=== PATIENT | male | born 1935 | race Caucasian/White ===

== ENCOUNTER → 2016-04-26 | Outpatient (REF) | payer MEDICARE, MEDICAID | LOC: LAB 17:58 | PROVIDERS: ATTEND Family Medicine | DX: Z53.8 Procedure and treatment not carried out for other reasons (principal) ==

== ENCOUNTER → 2016-04-28 | Outpatient (CLI) | payer MEDICARE, MEDICAID | LOC: LAB 14:53 | PROVIDERS: ATTEND Family Medicine | DX: R06.2 Wheezing (principal) | CPT/HCPCS: 87486; 87581; 87633; 87798 ==

== ENCOUNTER → 2016-06-03 | Outpatient (REF) | payer MEDICARE, MEDICAID ==
[2016-06-03 14:59] LABS: CLARITY,URINE Turbid; GLUCOSE, URINE (UA) Negative (Negative); LEUKOCYTE ESTERASE ,URINE 2+ (Negative); PH,URINE 8.5 (5.0 - 8.0)
[2016-06-03 15:18] LABS: BILIRUBIN,URINE 1+ (Negative); COLOR,URINE Orange
[2016-06-03 15:34] LABS: RBC,URINE TNTC /HPF; URINE CENTRIFUGED VOLUME 12 mL
== END ==
LOC: LAB 14:38
PROVIDERS: ATTEND Family Medicine
DX: N39.0 Urinary tract infection, site not specified (principal)
CPT/HCPCS: 81003; 81015; 87077; 87088; 87186

== ENCOUNTER → 2016-08-04 | Outpatient (CLI) | payer MEDICARE, MEDICAID ==
[~2016-08-04] MED LIST: AC325T PO; ACET500L36 PO; ACID1TAB3 PO; AMD200T PO; ASP81CT PO; ASPI325T4 PO; BISA10SU6 RC; CPR500T PO; DIVA250T12 PO; DOXY100C PO; DROX100C PO; DVL500TSR PO; ENXP30I.3 SC; ESCI10TA PO; FAMO-119 PO; FERR325T5 PO; FLUD0.1T PO; HALO1TAB4 PO; HYDR-3702 PO; HYDR-707 PO; LACT1CAP8 PO; LORA0.5P MC; LORA0.5T PO; MAG355OR17 PO; MAGN400O7 PO; MAGN800O PO; METH1TAB21 PO; METO25TA60 PO; MIDO10TA PO; MULT-19 PO; NYST1POW2 PO; OMEP20CA6 PO; OMEP20TA PO; ONDAN4ODT PO; POLY17PO6 PO; RAME8T PO; SENN-115 GT; TAMS-8 PO; TRAZ-28 PO; TRM50T PO; VALP250S14 PO; ZOLP5TAB PO; [UNRECOGNIZED DRUG - CODE] IM
== END ==
LOC: EMS 10:45
PROVIDERS: ATTEND Family Medicine
DX: R41.82 Altered mental status, unspecified (principal)